=== PATIENT | female | born 1975 | race Hispanic/Latino ===

== ENCOUNTER 2018-08-26 12:51 | Emergency (ER) | payer OTHER ==
[~2018-08-26] VITALS: Ht 165.1 cm; Wt 106.6 kg
[2018-08-26] MEDS ORDERED: SODIUM CHLORIDE 0.9% 1000ML 1,000 ML IV STA (13:56)
[2018-08-26] MEDS ORDERED: ONDANSETRON HCL INJ 2 MG/ML VIAL IV STA (13:56)
[2018-08-26 14:11] LABS: BASOPHILS # (AUTO) 0.1 (0.0-0.1); BASOPHILS % 0.5 % (0.0-1.0); EOSINOPHILS # (AUTO) 0.1 (0.0-0.4); EOSINOPHILS % 0.8 % (0.0-6.0); HEMATOCRIT 34.3 % (34.2-44.1); HEMOGLOBIN 11.4 g/dL (12.0-16.0); LYMPHOCYTES # (AUTO) 3.2 (1.0-3.2); LYMPHOCYTES % 25.2 % (18.0-39.1); MEAN CORPUSCULAR HEMOGLOBIN 27.6 pg (28-32); MEAN CORPUSCULAR HGB CONC 33.2 g/dL (31-35); MEAN CORPUSCULAR VOLUME 83.1 fL (81-99); MONOCYTES # (AUTO) 0.8 (0.2-0.8); MONOCYTES % 6.6 % (4.4-11.3); NEUTROPHILS # (AUTO) 8.4 (2.1-6.9); NEUTROPHILS % 66.3 % (38.7-80.0); PLATELET COUNT 333 x10e3/uL (140-360); RED BLOOD COUNT 4.13 x10e6/uL (3.6-5.1); RED CELL DISTRIBUTION WIDTH 12.8 % (11.7-14.4)
[2018-08-26 14:37] LABS: ALANINE AMINOTRANSFERASE 100 IU/L (0-55); ALBUMIN 3.5 g/dL (3.5-5.0); ALKALINE PHOSPHATASE 88 IU/L (40-150); ANION GAP 15.3 mmol/L (8-16); BLOOD UREA NITROGEN 10 mg/dL (7-26); BUN/CREATININE RATIO 13 (6-25); CALCIUM 9.6 mg/dL (8.4-10.2); CARBON DIOXIDE 22 mmol/L (22-29); CHLORIDE 100 mmol/L (98-107); CREATININE, SERUM 0.75 mg/dL (0.57-1.11); EST GLOMERULAR FILTRATION RATE > 60 ML/MIN (60-); GLUCOSE 167 mg/dL (74-118); POTASSIUM 3.3 mmol/L (3.5-5.1); SODIUM 134 mmol/L (136-145)
[2018-08-26 14:42] LABS: HCG,QUANTITATIVE 1503.73 mIU/mL (0-10)
--- NOTE | 2018-08-26 17:08 | Diagnostic Imaging Report ---
TECHNIQUE: Transvaginal and transabdominal ultrasound imaging of the pelvis was performed. Transvaginal images were medically indicated to better evaluate the fetus. Color Doppler evaluation was utilized to supplement the evaluation. HISTORY: First trimester vaginal bleeding, reported history of ectopic, polycystic ovarian syndrome, multiple miscarriages COMPARISON: None available. DISCUSSION: UTERUS: Size: 8.4 x 5.4 x 5.5 cm. Endometrium: A gestational sac is seen in the region of the lower uterine segment/cervix. [place] rump length: 1.27 cm, compatible with 7 weeks and 3 days No heart tone is detected. No yolk sac is seen. OVARIES/ADNEXA: The right ovary measures 3.4 x 2.6 x 3.1 cm. The left ovary is not seen, likely secondary to regional gas. PELVIS: No free fluid. IMPRESSION: Findings concerning for a miscarriage in progress, recommend correlation with serial beta hCGs levels and follow-up ultrasound as warranted. Signed by: Dr. Ambrose Mckay D.O., M.M.M. on 08/26/2018 5:05 PM
[2018-08-26] MEDS ORDERED: HYDROCODONE/APAP 10MG-325MG TAB PO ONE (17:15)
[2018-08-26] MEDS ORDERED: ONDANSETRON HCL 4 MG ORAL DISINTEGRATING TAB PO ONE (17:30)
[2018-08-26 17:50] LABS: BILIRUBIN,URINE NEGATIVE (NEGATIVE); CLARITY,URINE CLOUDY (CLEAR); COLOR,URINE RED (YELLOW); KETONES,URINE 1+ (NEGATIVE); LEUKOCYTE ESTERASE ,URINE 2+ (NEGATIVE); NITRITE,URINE POSITIVE (NEGATIVE); PREGNANCY TEST, URINE POSITIVE (NEGATIVE); PROTEIN,URINE DIPSTICK 2+ (NEGATIVE); URINE UROBILINOGEN 4 mg/dL (0.2 - 1)
[2018-08-26 17:58] LABS: BACTERIA,URINE MODERATE /HPF; RBC,URINE >50 /HPF (0-5)
[2018-08-26] MEDS ORDERED: CEFTRIAXONE SOD 1 GM VIAL IV ONE (18:15)
== END 2018-08-26 19:12 | disposition home or self-care (01) ==
LOC: ER 12:51
DX: O03.38 Urinary tract infection following incomplete spontaneous abortion (principal)
CPT/HCPCS: 36415; 76817; 80053; 81001; 81025; 84702; 85025; 86850; 86900; 93005; 99284; J0696; J2405; J7030; Q0162

== ENCOUNTER → 2025-02-01 | Outpatient (REF) | payer OTHER | LOC: MAMMO 08:54 | PROVIDERS: ATTEND Internal Medicine | DX: Z12.31 Encounter for screening mammogram for malignant neoplasm of breast (principal) | CPT/HCPCS: 77067 ==